=== PATIENT | female | born 2000 | race African-American/Black ===

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

== ENCOUNTER 2022-03-20 09:16 | Observation (INO) | payer OTHER ==
[~2022-03-20] VITALS: Ht 157.5 cm; Wt 46.3 kg
[~2022-03-20 09:16] MED LIST changes: +DIPH25CA83 MT; +FAMO-135 MT; +P20 MT
[2022-03-20] MEDS ORDERED: ONDANSETRON HCL 4MG/2ML INJ IV PRN (10:15)
[2022-03-20] MEDS ORDERED: LACTATED RINGERS 1,000 ML IV SCH (10:15)
[2022-03-20 10:57] LABS: BASOPHILS % 0.4 % (0.0-2.0); EOSINOPHILS % 0.5 % (0.0-5.0); HEMATOCRIT. 31.3 % (36.0-48.0); HEMOGLOBIN. 10.7 g/dL (12.0-16.0); MEAN CORPUSCULAR HEMOGLOBIN 29.8 pg (28.0-32.0); MEAN CORPUSCULAR VOLUME 87.2 fL (81.0-99.0); MEAN PLATELET VOLUME 7.8 fl (7.4-10.4); MONOCYTES % 6.5 % (2.0-8.0); NEUTROPHILS % 70.6 % (40.0-76.0); PLATELET 231 x1000/uL (130-400); RED CELL DISTRIBUTION WIDTH 13.5 % (11.6-14.6)
[2022-03-20 11:03] LABS: CHLORIDE 109 mEq/L (98-107)
[2022-03-20 11:17] LABS: CLARITY URINE CLEAR (CLEAR); COLOR URINE YELLOW (YELLOW); KETONES URINE 1+ (NEGATIVE); LEUKOCYTE ESTERASE URINE 1+ (NEGATIVE); NITRITE URINE NEGATIVE (NEGATIVE); OCCULT BLOOD URINE NEGATIVE (NEGATIVE); PROTEIN URINE TRACE (NEGATIVE)
[2022-03-20] MEDS ORDERED: CEFAZOLIN 2,000 MG in DEXT 5% WATER 100 ML IV SCH (12:15)
== END 2022-03-20 13:30 | disposition home or self-care (01) ==
LOC: 8 EST LDRP 09:16
PROVIDERS: ADMIT Obstetrics & Gynecology; ATTEND Obstetrics & Gynecology
DX: O26.893 Other specified pregnancy related conditions, third trimester (principal); R10.9 Unspecified abdominal pain; Z3A.30 30 weeks gestation of pregnancy; Z98.891 History of uterine scar from previous surgery
CPT/HCPCS: 36415; 59025; 76805; 76818; 80053; 81003; 85025; 87086; 96361; 96365; 96375; G0378; J0690; J2405; J7060; 96360; 99281; J7120

== ENCOUNTER 2022-04-02 15:03 | Observation (INO) | payer OTHER ==
[~2022-04-02] VITALS: Ht 154.9 cm; Wt 54.4 kg
[2022-04-02] MEDS ORDERED: LACTATED RINGERS 1,000 ML IV ONE (17:00)
[2022-04-02 17:14] LABS: CLARITY URINE TURBID (CLEAR); COLOR URINE YELLOW (YELLOW); KETONES URINE NEGATIVE (NEGATIVE); LEUKOCYTE ESTERASE URINE 1+ (NEGATIVE); NITRITE URINE NEGATIVE (NEGATIVE); OCCULT BLOOD URINE NEGATIVE (NEGATIVE); PROTEIN URINE NEGATIVE (NEGATIVE); SPECIFIC GRAVITY URINE 1.014 (1.005-1.030); UROBILINOGEN URINE 0.2 E.U./dL (0.2-1.0)
[2022-04-02] MEDS ORDERED: CEFAZOLIN 2,000 MG in DEXT 5% WATER 100 ML IV NR (18:00)
== END 2022-04-02 18:30 | disposition home or self-care (01) ==
LOC: 8 EST LDRP 15:03
PROVIDERS: ADMIT Obstetrics & Gynecology; ATTEND Obstetrics & Gynecology
DX: O23.43 Unspecified infection of urinary tract in pregnancy, third trimester (principal); O62.9 Abnormality of forces of labor, unspecified; O26.893 Other specified pregnancy related conditions, third trimester; N89.8 Other specified noninflammatory disorders of vagina; Z3A.32 32 weeks gestation of pregnancy; Z98.891 History of uterine scar from previous surgery
CPT/HCPCS: 59025; 81003; 87086; 96361; 96365; G0378; J0690; J7060; 96360; 99281

== ENCOUNTER 2022-05-08 15:39 | Inpatient (IN) | payer OTHER ==
[~2022-05-08] VITALS: Ht 154.9 cm; Wt 55.8 kg
[2022-05-08] MEDS ORDERED: MAGNESIUM/ALUMINUM HYDROXIDE/SIMETHICONE 30ML UDC PO NR (16:45)
[2022-05-08] MEDS: LACTATED RINGERS 1,000 ML IV SCH (17:10)
[2022-05-08 17:31] LABS: CLARITY URINE CLOUDY (CLEAR); COLOR URINE YELLOW (YELLOW); KETONES URINE 2+ (NEGATIVE); LEUKOCYTE ESTERASE URINE 1+ (NEGATIVE); NITRITE URINE NEGATIVE (NEGATIVE); OCCULT BLOOD URINE TRACE (NEGATIVE); PROTEIN URINE TRACE (NEGATIVE); SPECIFIC GRAVITY URINE 1.018 (1.005-1.030)
[2022-05-08] MEDS ORDERED: RHO(D) IMMUNE GLOBULIN 300 MCG/SYR IM PRN ×2 (18:00→21:30)
[2022-05-08] MEDS ORDERED: OXYTOCIN 10 UNITS/ML 1ML ONE (18:06)
[2022-05-08] MEDS ORDERED: MORPHINE SULFATE/PF 1MG/ML 10ML AMP ONE (18:06)
[2022-05-08] MEDS ORDERED: CEFAZOLIN SODIUM 1000MG/VIAL ONE (18:06)
[2022-05-08] MEDS ORDERED: DIPHENHYDRAMINE 50MG/ML VIAL ONE (18:06)
[2022-05-08] MEDS ORDERED: FENTANYL CITRATE/PF 50MCG/ML 2ML VIAL ONE (18:06)
[2022-05-08] MEDS ORDERED: ONDANSETRON HCL 4MG/2ML INJ ONE (18:06)
[2022-05-08] MEDS ORDERED: CITRIC ACID/SODIUM CITRATE SOLN 30ML UDC PO NR (18:15)
[2022-05-08 19:20] LABS: *AMPHETAMINES SCREEN URINE NEGATIVE (NEGATIVE); *BARBITURATES SCREEN URINE NEGATIVE (NEGATIVE); *BENZODIAZEPINES SCREEN URINE NEGATIVE (NEGATIVE); *COCAINE SCREEN URINE NEGATIVE (NEGATIVE); METHADONE URINE SCREEN NEGATIVE (NEGATIVE); OPIATES URINE SCREEN NEGATIVE (NEGATIVE); PHENCYCLIDINE URINE SCREEN NEGATIVE (NEGATIVE)
[2022-05-08 19:34] LABS: BASOPHILS % 0.3 % (0.0-2.0); EOSINOPHILS % 0.1 % (0.0-5.0); HEMOGLOBIN. 11.3 g/dL (12.0-16.0); LYMPHOCYTES % 7.1 % (20.0-50.0); MEAN CORPUSCULAR HEMOGLOBIN 27.8 pg (28.0-32.0); MEAN CORPUSCULAR VOLUME 83.4 fL (81.0-99.0); MEAN PLATELET VOLUME 7.8 fl (7.4-10.4); NEUTROPHILS % 87.5 % (40.0-76.0); PLATELET 260 x1000/uL (130-400); RED BLOOD CELL COUNT 4.07 mill/uL (4.2-5.4); RED CELL DISTRIBUTION WIDTH 14.3 % (11.6-14.6)
[2022-05-08 19:45] LABS: CANNABINOID URINE SCREEN PRESUMTIVE POSITIVE (NEGATIVE)
[2022-05-08 19:46] LABS: CHLORIDE 104 mEq/L (98-107)
[2022-05-08 19:49] LABS: PARTIAL THROMBOPLASTIN TIME 28.4 sec (23.4-31.0); PROTHROMBIN TIME 10.4 sec (9.6-11.0)
[2022-05-08 20:13] LABS: HEPATITIS B SURFACE ANTIGEN NEGATIVE
[2022-05-08] MEDS ORDERED: KETOROLAC 60MG/2ML VIAL IM ONE (20:43)
[2022-05-08] MEDS ORDERED: BUTORPHANOL TARTRATE 2 MG/ML VIAL IV PRN (20:45)
[2022-05-08] MEDS ORDERED: DIPHENHYDRAMINE 50MG/ML VIAL IV PRN (20:45)
[2022-05-08] MEDS ORDERED: NALOXONE HCL 0.4 MG/ML 1ML VIAL IV PRN (20:45)
[2022-05-08] MEDS ORDERED: HYDROMORPHONE HCL/PF 2MG/ML CPJ IM PRN (21:30)
[2022-05-08] MEDS ORDERED: BISACODYL 10MG SUPP PR PRN (21:30)
[2022-05-08] MEDS ORDERED: IBUPROFEN 400MG TABLET PO PRN (21:30)
[2022-05-08] MEDS ORDERED: DIPHENHYDRAMINE 25MG CAPSULE PO PRN (21:30)
[2022-05-08] MEDS ORDERED: OXYTOCIN 30 UNITS/500ML NS PMX 500 ML IV ONE (22:45)
[2022-05-08 23:30] VITALS: BP 97/64
[2022-05-09] VITALS: BP 122/70
[2022-05-09 03:00] VITALS: BP 110/68
[2022-05-09] MEDS: KETOROLAC 30MG/ML VIAL IV SCH ×2 (05:10→11:42)
[2022-05-09 08:00] VITALS: BP 111/57
[2022-05-09 08:15] LABS: BASOPHILS % 0.2 % (0.0-2.0); HEMATOCRIT. 31.5 % (36.0-48.0); HEMOGLOBIN. 10.6 g/dL (12.0-16.0); LYMPHOCYTES % 8.5 % (20.0-50.0); MEAN CORPUSCULAR HEMOGLOBIN 27.8 pg (28.0-32.0); MEAN CORPUSCULAR VOLUME 82.9 fL (81.0-99.0); MEAN PLATELET VOLUME 7.9 fl (7.4-10.4); NEUTROPHILS % 84.3 % (40.0-76.0); PLATELET 224 x1000/uL (130-400); RED CELL DISTRIBUTION WIDTH 14.3 % (11.6-14.6)
[2022-05-09] MEDS: LACTATED RINGERS 1,000 ML IV SCH (11:01)
[2022-05-09] MEDS ORDERED: KETOROLAC 30MG/ML VIAL IV SCH (11:34)
[2022-05-09 16:00] VITALS: BP_SYST 106; BP_SYST 111; BP_DIAS 57; BP_DIAS 64
[2022-05-09 20:00] VITALS: BP 111/69
[2022-05-09] MEDS: IBUPROFEN 800MG TABLET PO PRN (22:01)
[2022-05-10] MEDS: IBUPROFEN 800MG TABLET PO PRN ×2 (03:24→16:50)
[2022-05-10 03:30] VITALS: BP 110/62
[2022-05-10 08:00] VITALS: BP 106/66
[2022-05-10] MEDS: PRENATAL VIT/FE FUMARATE/FA TABLET PO SCH (10:49)
[2022-05-10] MEDS: FERROUS SULFATE 325MG TABLET PO SCH ×2 (10:49→16:49)
[2022-05-10 16:00] VITALS: BP 105/70
[2022-05-10 20:00] VITALS: BP 110/74
[2022-05-11] MEDS: IBUPROFEN 800MG TABLET PO PRN (02:27)
[2022-05-11 03:15] VITALS: BP 108/68
[2022-05-11] MEDS ORDERED: FERR-63 PO (07:39)
[2022-05-11] MEDS ORDERED: IBUP-2030 PO (07:49)
[2022-05-11 08:00] VITALS: BP 116/70
[2022-05-11] MEDS ORDERED: MEDROXYPROGESTERONE ACETATE 150MG/ML VIAL IM NR (08:30)
[2022-05-11] MEDS: PRENATAL VIT/FE FUMARATE/FA TABLET PO SCH (08:57)
[2022-05-11] MEDS: FERROUS SULFATE 325MG TABLET PO SCH (08:57)
== END 2022-05-11 12:20 | disposition home or self-care (01) | DRG 540 ==
LOC: 8 EST A/PP 15:39 → OBSVTOIN 17:45 → 8EST 22:33
PROVIDERS: ADMIT Obstetrics & Gynecology; ATTEND Obstetrics & Gynecology
PROC: 10D00Z1 Extraction of Products of Conception, Low, Open Approach (ICD-10-PCS; principal; 2022-05-08)
DX: O34.211 Maternal care for low transverse scar from previous cesarean delivery (principal); O99.324 Drug use complicating childbirth; Z20.822 Contact with and (suspected) exposure to COVID-19; O99.02 Anemia complicating childbirth; Z3A.37 37 weeks gestation of pregnancy; Z37.0 Single live birth; F12.10 Cannabis abuse, uncomplicated
CPT/HCPCS: 36415; 80053; 80305; 81003; 84550; 85025; 85384; 86592; 86703; 86762; 86850; 86900; 87340; 87426; 88307; G0378; J0690; J1050; J1200; J1885; J2274; J2405; J3010; J7120; J2590